=== PATIENT | male | born 1945 ===

== ENCOUNTER 2017-12-07 09:52 | Outpatient (CLI) | payer OTHER | END 2017-12-07 09:56 | disposition home or self-care (01) | LOC: LAB 09:52 | DX: C73 Malignant neoplasm of thyroid gland (principal); E89.0 Postprocedural hypothyroidism ==

== ENCOUNTER 2017-12-10 10:20 | Outpatient (CLI) | payer OTHER | END 2017-12-10 11:00 | disposition home or self-care (01) | LOC: NUCLEAR 10:20 | DX: C73 Malignant neoplasm of thyroid gland (principal) | CPT/HCPCS: 78018; 78020; A9528 ==

== ENCOUNTER 2018-08-15 09:30 | Inpatient (IN) | payer OTHER ==
[~2018-08-15] VITALS: Ht 175.3 cm; Wt 93.0 kg
[2018-08-15] MEDS ORDERED: SIMVASTATIN20 MG PO (11:00)
[2018-08-15] MEDS ORDERED: SYNTHROID150 MCG PO (11:00)
[2018-08-15] MEDS ORDERED: AVAPRO150 MG PO (11:00)
[2018-08-15] MEDS ORDERED: FLOVENT DISKUS50 MCG IH (11:01)
[2018-08-15] MEDS ORDERED: PROTONIX40 MG PO (11:01)
[2018-08-15] MEDS ORDERED: ZANTAC150 MG PO (11:01)
[2018-08-15] MEDS ORDERED: PERCOCET 10-321 EACH PO (11:02)
[2018-08-18] MEDS ORDERED: DOCUSATE SODIU100 MG PO (07:56)
[2018-08-18] MEDS ORDERED: CLONAZEPAM1 MG PO (07:56)
[2018-08-18] MEDS ORDERED: PERCOCET 5-3251 EACH PO (07:56)
[2018-08-18] MEDS ORDERED: GABAPENTIN800 MG PO (07:56)
[2018-08-18] MEDS ORDERED: AMOX-CLAV 875-1 EACH PO (07:56)
[2018-08-18] MEDS ORDERED: AMBIEN10 MG PO (12:24)
== END 2018-08-18 14:09 | disposition home or self-care (01) | DRG 455 ==
LOC: O/R 08-17 05:40 → PED 08-17 05:40 → SURH 08-17 09:30 → PED 08-17 16:26
PROVIDERS: Orthopaedic Surgery Orthopaedic Surgery of the Spine
PROC: 0SG0071 Fusion of Lumbar Vertebral Joint with Autologous Tissue Substitute, Posterior Approach, Posterior Column, Open Approach (ICD-10-PCS; 2018-08-17)
PROC: 0ST40ZZ Resection of Lumbosacral Disc, Open Approach (ICD-10-PCS; 2018-08-17)
PROC: 0SG30AJ Fusion of Lumbosacral Joint with Interbody Fusion Device, Posterior Approach, Anterior Column, Open Approach (ICD-10-PCS; 2018-08-17)
PROC: 07DS3ZZ Extraction of Vertebral Bone Marrow, Percutaneous Approach (ICD-10-PCS; 2018-08-17)
PROC: 0SG30A0 Fusion of Lumbosacral Joint with Interbody Fusion Device, Anterior Approach, Anterior Column, Open Approach (ICD-10-PCS; principal; 2018-08-17 12:45)
DX: M47.27 Other spondylosis with radiculopathy, lumbosacral region (principal); M48.07 Spinal stenosis, lumbosacral region; M51.17 Intervertebral disc disorders with radiculopathy, lumbosacral region; I10 Essential (primary) hypertension; E03.8 Other specified hypothyroidism

== ENCOUNTER 2024-12-07 10:21 | Inpatient (IN) | payer OTHER ==
[~2024-12-07] VITALS: Ht 274.3 cm; Wt 74.8 kg
[~2024-12-07 10:21] MED LIST: AMBIEN10 MG PO; AMOX-CLAV 875-1 EACH PO; ATORVALIQ20 MG/5 ML PO; AVAPRO150 MG PO; CLONAZEPAM1 MG PO; COZAAR25 MG PO; DOCUSATE SODIU100 MG PO; FLOVENT DISKUS50 MCG IH; GABAPENTIN800 MG PO; OMEGA-31000 MG; PERCOCET 10-321 EACH PO; PERCOCET 5-3251 EACH PO; PROTONIX40 MG PO; SIMVASTATIN20 MG PO; SYNTHROID150 MCG PO; VITAMIN D; ZANTAC150 MG PO
[2024-12-12] MEDS ORDERED: VANCOMYCIN HCL 1,000 MG VIAL ONE ×2 (12:40→12:42)
[2024-12-12] MEDS ORDERED: CEFAZOLIN SODIUM 1,000 MG VIAL ONE ×2 (12:40→15:29)
[2024-12-12] MEDS ORDERED: TRANEXAMIC ACID 100MG/1ML (1000MG) AMPUL IV ONE ×2 (12:41→13:21)
[2024-12-12] MEDS ORDERED: METHYLPREDNISOLONE SOD SUCC 125 MG VIAL ONE (12:41)
[2024-12-12] MEDS ORDERED: PROMETHAZINE HCL 50 MG/ML AMPUL IM PRN (12:45)
[2024-12-12] MEDS ORDERED: ENALAPRILAT DIHYDRATE 1.25 MG/ML VIAL IV PRN (12:45)
[2024-12-12] MEDS ORDERED: 0.9 % SODIUM CHLORIDE 1,000 ML IV SCH (12:45)
[2024-12-12] MEDS ORDERED: PERCOCET 5-3251 EACH PO (12:48)
[2024-12-12] MEDS ORDERED: ZOFRAN8 MG PO (12:49)
[2024-12-12] MEDS ORDERED: MEDROLPACK PO (12:49)
[2024-12-12] MEDS ORDERED: GABAPENTIN100 M2 PO (12:49)
[2024-12-12] MEDS ORDERED: COLACE100 MG PO (12:49)
[2024-12-12] MEDS ORDERED: AMOX-CLAV 875-1 EACH PO (12:49)
[2024-12-12] MEDS ORDERED: NEURONTIN800 MG PO (12:50)
[2024-12-12] MEDS ORDERED: METHYLPREDNISOLONE ACETATE 80 MG/ML VIAL ONE (12:50)
[2024-12-12] MEDS ORDERED: DOCUSATE SODIUM 100MG CAP PO SCH (13:00)
[2024-12-12] MEDS ORDERED: HEMOSTATIC MATRIX WITH THROMBIN KIT TOP ONE (14:30)
[2024-12-12] MEDS ORDERED: MORPHINE SULFATE 4 MG/ML VIAL IV ONE ×2 (15:50→16:20)
[2024-12-12] MEDS ORDERED: CEFAZOLIN SODIUM 1,000 MG in 0.9 % SODIUM CHLORIDE 50 ML IV SCH (17:00)
[2024-12-12] MEDS ORDERED: METHYLPREDNISOLONE SOD SUCC 125 MG VIAL IV SCH (17:00)
[2024-12-12] MEDS ORDERED: ALBUTEROL SULFATE 3 ML/2.5 MG AMPUL.NEB IH SCH (17:00)
[2024-12-12] MEDS ORDERED: FAMOtidine 20 MG TABLET PO SCH (17:00)
[2024-12-12 17:39] VITALS: BP 128/77; O2SAT 98
[2024-12-12] MEDS ORDERED: ACETAMINOPHEN 500 MG GEL..CAP PO SCH (20:00)
[2024-12-12] MEDS ORDERED: VANCOMYCIN HCL 1,000 MG VIAL IV SCH (21:00)
[2024-12-12] MEDS ORDERED: ZOLPIDEM TARTRATE 10 MG TABLET PO SCH (21:00)
[2024-12-12] MEDS ORDERED: GABAPENTIN 800 MG TABLET PO SCH (21:00)
[2024-12-12] MEDS ORDERED: OxyCODONE HCL 5 MG TABLET (ROXICODONE) PO PRN (21:15)
[2024-12-12] MEDS ORDERED: MEPERIDINE HCL/PF 50 MG/ML VIAL IV PRN (21:15)
[2024-12-13] MEDS ORDERED: SODIUM CHLORIDE 0.45 % 1,000 ML IV SCH
[2024-12-13 00:08] VITALS: BP 117/56; O2SAT 97
[2024-12-13 04:00] VITALS: BP 108/61; O2SAT 98
[2024-12-13] MEDS ORDERED: LEVOTHYROXINE SODIUM 137 MCG TABLET PO SCH (06:00)
[2024-12-13] MEDS ORDERED: OxyCODONE HCL 5 MG TABLET (ROXICODONE) PO PRN (06:01)
[2024-12-13 06:48] LABS: HEMATOCRIT 41.8 % (39.0-48.0); HEMOGLOBIN 13.5 g/dL (13-16.00); MEAN CELL VOLUME 87.6 fL (80.0-100.00); MEAN CORPUSCULAR HEMOGLOBIN 28.3 pg (27.00-32.0); MEAN CORPUSCULAR HGB CONC 32.3 g/dl (32.0-36.0); PLATELET COUNT 160 K/uL (150-450); RED BLOOD COUNT 4.78 M/uL (4.00-6.00); RED CELL DISTRIBUTION WIDTH 13.7 % (11.5-14.5)
[2024-12-13 06:49] LABS: CALCIUM 8.5 mg/dL (8.5-10.1); CREATININE SERUM 0.83 mg/dL (0.70-1.30); GFR 89.14; POTASSIUM 4.59 mEq/L (3.5-5.1)
[2024-12-13 07:55] VITALS: BP 100/61; O2SAT 98
[2024-12-13] MEDS ORDERED: LOSARTAN POTASSIUM 25 MG TABLET PO SCH (09:00)
[2024-12-13] MEDS ORDERED: TAMSULOSIN HCL 0.4 MG CAP PO SCH (09:00)
[2024-12-13] MEDS ORDERED: ATORVASTATIN CALCIUM 20 MG TABLET PO SCH (09:00)
[2024-12-13 12:30] VITALS: BP 138/74; O2SAT 99
[2024-12-13 17:11] VITALS: BP 114/52; O2SAT 98
[2024-12-13 21:51] VITALS: BP 110/69; O2SAT 100
[2024-12-14] VITALS: BP 132/78; O2SAT 98
[2024-12-14 04:00] VITALS: BP 117/65; O2SAT 96
[2024-12-14 08:17] VITALS: BP 118/71; O2SAT 98
== END 2024-12-14 10:01 | disposition home or self-care (01) | DRG 428 ==
LOC: O/R 12-12 08:30 → SURH 12-12 12:15 → PED 12-12 14:59
PROVIDERS: ADMIT Orthopaedic Surgery Orthopaedic Surgery of the Spine; ATTEND Orthopaedic Surgery Orthopaedic Surgery of the Spine
PROC: 0SG1071 Fusion of 2 or more Lumbar Vertebral Joints with Autologous Tissue Substitute, Posterior Approach, Posterior Column, Open Approach (ICD-10-PCS; 2024-12-12)
PROC: 0ST20ZZ Resection of Lumbar Vertebral Disc, Open Approach (ICD-10-PCS; 2024-12-12)
PROC: 07DR0ZZ Extraction of Iliac Bone Marrow, Open Approach (ICD-10-PCS; 2024-12-12)
PROC: 4A1104G Monitoring of Peripheral Nervous Electrical Activity, Intraoperative, Open Approach (ICD-10-PCS; 2024-12-12)
PROC: XRGC0R7 Fusion of 2 or more Lumbar Vertebral Joints using Custom-Made Anatomically Designed Interbody Fusion Device, Open Approach, New Technology Group 7 (ICD-10-PCS; principal; 2024-12-12 14:00)
DX: M43.16 Spondylolisthesis, lumbar region (principal); M48.062 Spinal stenosis, lumbar region with neurogenic claudication; M51.369 Other intervertebral disc degeneration, lumbar region without mention of lumbar back pain or lower extremity pain